=== PATIENT | female | born 1970 | race Caucasian/White ===

== ENCOUNTER 2024-11-05 09:30 | Outpatient (CLI) | payer BC, SELFPAY ==
[2024-11-05 13:26] LABS: Microscopic, Urine URINE MICROSCOPIC (MICROSCOPIC)
[2024-11-05 14:21] LABS: Hematocrit 41.1 % (37.0-47.0); Hemoglobin 13.6 g/dL (12.2-16.2); Immature Granulocytes % 0.4 %; Mean Corpuscular HGB Conc 33.1 g/dL (31.8-35.4); Mean Corpuscular Hemoglobin 29.8 pg (27.0-31.2); Mean Corpuscular Volume 90.1 fl (81-99); Nucleated Red Blood Cells % 0 %; Platelet Count 213 K/mm3 (142-424); Red Blood Count 4.56 M/mm3 (4.20-5.40); Red Cell Distribution Width-SD 39.8 fL; White Blood Count 4.7 K/mm3 (4.8-10.8)
[2024-11-05 14:22] LABS: Bilirubin,Urine Negative (Negative); Color,Urine YELLOW (Yellow); Glucose,Urine (UA) Negative (Negative); Ketones,Urine Negative (Negative); Leukocyte Esterase,Urine Negative (Negative); PH,Urine 6.0 (5.0-8.5); Protein,Urine Negative (Negative); Specific Gravity, Urine >= 1.030 (1.005-1.030); Urobilinogen,Urine 0.2 EU/dl (0.2)
[2024-11-05 14:45] LABS: Bacteria,Urine 2+ /lpf
[2024-11-05 14:49] LABS: Hemoglobin A1C 5.5 % (4.0-6.0)
[2024-11-05 15:31] LABS: Albumin Level 4.5 g/dl (3.5-5.0); Chloride 108 mmol/L (98-107); Sodium 142 mmol/L (136-145)
[2024-11-05 15:32] LABS: Potassium 4.9 mmoL/L (3.5-5.1)
[2024-11-05 15:34] LABS: Alanine Aminotransferase 35 U/L (12-78); Albumin/Globulin Ratio 2.0 (1.1-1.8); Alkaline Phosphatase 65 U/L (38-126); Anion Gap 11.9 mEq/L (5-15); Aspartate Amino Transferase 29 U/L (14-36); Bilirubin,Total 0.4 mg/dl (0.2-1.3); Blood Urea Nitrogen 14 mg/dl (7-17); Carbon Dioxide 27 mmol/L (22.0-30.0); Cholesterol 158 mg/dl (140-200); Creatinine,Serum 0.90 mg/dl (0.52-1.04); Estimated Glomerular Filt Rate 65 ml/min (>60); GFR (African American) 78 ML/MIN (>60); Globulin 2.3 g/dL (1.3-3.2); Total Protein,Serum 6.8 g/dl (6.3-8.2); Triglycerides 86 mg/dl (30-150)
[2024-11-05 15:35] LABS: Calcium 9.3 mg/dl (8.4-10.2); Glucose 90 mg/dl (74-100); HDL Cholesterol 54 mg/dl (40-60); Iron 104 ug/dL (37-170)
[2024-11-05 15:47] LABS: Total Iron Binding Capacity 276 ug/dL (265-497)
[2024-11-05 16:01] LABS: Free T4 (Free Thyroxine) 0.94 ng/dl (0.78-2.19)
[2024-11-05 16:06] LABS: Thyroid Stimulating Hormone 3.52 uIU/mL (0.465-4.68)
[2024-11-05 16:10] LABS: Ferritin 103 ng/ml (11.1-264)
[2024-11-05 16:12] LABS: 25-OH Vitamin D, Total 35.7 ng/mL (30-100)
[2024-11-05 16:33] LABS: Vitamin B12 538 pg/mL (239-931)
[2024-11-05 16:37] LABS: Hepatitis C Ab Qual. W/ RFX NEGATIVE (Negative)
== END 2024-11-05 23:59 | disposition home or self-care (01) ==
LOC: LAB.DROPOF 11-07 09:49
PROVIDERS: PCP Nurse Practitioner Family; Visit Provider Nurse Practitioner Family
DX: Z13.21 Encounter for screening for nutritional disorder (principal); E78.5 Hyperlipidemia, unspecified; Z76.89 Persons encountering health services in other specified circumstances; Z11.59 Encounter for screening for other viral diseases; Z11.4 Encounter for screening for human immunodeficiency virus [HIV]; R53.83 Other fatigue; G47.33 Obstructive sleep apnea (adult) (pediatric); R41.3 Other amnesia; E11.9 Type 2 diabetes mellitus without complications; I10 Essential (primary) hypertension
CPT/HCPCS: 80053; 80061; 81001; 82306; 82607; 82728; 83036; 83540; 83550; 84439; 84443; 85025; 86803; 87086; 87389